=== PATIENT | female | born 1955 | race Caucasian/White ===

== ENCOUNTER 2024-04-18 12:15 | Emergency (ER) | payer BC ==
[~2024-04-18] VITALS: Ht 152.4 cm; Wt 70.0 kg
[2024-04-18 12:17] VITALS: O2SAT 97
[2024-04-18] MEDS: MORPHINE SULFATE 4 MG/ML INJ (FOR IV/IM USE) IV STA (13:17)
[2024-04-18] MEDS: SODIUM CHLORIDE 0.9% 1,000 ML IV ONE (13:18)
[2024-04-18] MEDS: ONDANSETRON HCL 4MG/2ML INJ IV STA (13:18)
[2024-04-18 13:23] LABS: BASOPHILS % 0.7 % (0.0-2.0); CHLORIDE 109 mEq/L (98-107); EOSINOPHILS % 0.8 % (0.0-5.0); HEMATOCRIT. 42.1 % (36.0-48.0); HEMOGLOBIN. 13.7 g/dL (12.0-16.0); MEAN CORPUSCULAR HEMOGLOBIN 29.3 pg (28.0-32.0); MEAN CORPUSCULAR HGB CONC 32.6 g/dL (31.0-37.0); MEAN CORPUSCULAR VOLUME 89.7 fL (81.0-99.0); MEAN PLATELET VOLUME 8.3 fl (7.4-10.4); NEUTROPHILS % 85.5 % (40.0-76.0); PLATELET 241 x1000/uL (130-400); POTASSIUM 3.9 mEq/L (3.5-5.1); RED BLOOD CELL COUNT 4.69 mill/uL (4.2-5.4); RED CELL DISTRIBUTION WIDTH 14.6 % (11.6-14.6); SODIUM 141 mEq/L (136-145); WHITE BLOOD COUNT 9.1 x1000/uL (4.5-11.0)
[2024-04-18 13:24] LABS: CARBON DIOXIDE 24 mEq/L (21-32)
[2024-04-18 13:25] LABS: CALCIUM 9.3 mg/dL (8.7-10.4)
[2024-04-18 13:27] LABS: INR 0.9; PROTHROMBIN TIME 10.3 sec (9.6-11.0)
[2024-04-18 13:29] LABS: CREATININE 0.6 mg/dL (0.6-1.0); GLUCOSE 117 mg/dL (70-105); UREA NITROGEN BLOOD 8 mg/dL (9-23)
[2024-04-18 13:31] LABS: ALANINE AMINOTRANSFERASE 20 IU/L (10-49); ALBUMIN 4.5 g/dL (3.2-4.8); ASPARTATE AMINOTRANSFERASE 19 IU/L (<34)
[2024-04-18 13:32] LABS: BILIRUBIN DIRECT 0.1 mg/dL (<=3.0); BILIRUBIN TOTAL 0.5 mg/dL (0.1-1.0)
[2024-04-18 13:33] LABS: TROPONIN I HIGH SENSITIVITY < 4 ng/L (3.0-34)
[2024-04-18] MEDS ORDERED: AMOX1TAB16 MT (16:19)
[2024-04-18 16:34] VITALS: BP 166/74; PULSE 84; RESP 19; TEMP 36.61404; O2SAT 90
== END 2024-04-18 17:45 | disposition home or self-care (01) ==
LOC: ER 12:15
DX: K57.30 Diverticulosis of large intestine without perforation or abscess without bleeding (principal); J44.9 Chronic obstructive pulmonary disease, unspecified
CPT/HCPCS: 99285; 74176; 96374; 71045; 96361; 96375; 80076; 80048; 83690; 85025; 85610; 86850; 86900; 86901; 84484; 36415; J2405; J2270; J7030